=== PATIENT | female | born 1980 | race Hispanic/Latino ===

== ENCOUNTER 2018-01-11 15:32 | Emergency (ER) | payer OTHER ==
[~2018-01-11 15:32] MED LIST: ISOVUE-370 76%-LOCM 1 ML ONE
[2018-01-11 16:08] LABS: #Basophils 0.1 thou/uL (0.0-0.2); #Eosinphils 0.1 thou/uL (0.0-0.7); #Lymphocytes 1.9 thou/uL (1.20-3.40); #Monocytes 0.5 thou/uL (0.11-0.59); #Neutrophils 2.7 thou/uL (1.40-6.50); %Eosinophils 1.3 % (0.0-10.0); %Lymphocytes 36.2 % (21.0-51.0); %Monocytes 9.6 % (0.0-10.0); %Neutrophils 51.9 % (42.0-75.0); Hemoglobin 13.7 g/dL (12.0-16.0); Mean Corpuscular HGB CONC 33.8 g/dL (32.0-36.0); Mean Corpuscular Hemoglobin 30.4 pg (27.0-31.0); Mean Platelet Volume 8.5 fL (7.4-10.4); Platelet Count 172 thou/uL (130-400); White Blood Cell (WBC) Count 5.1 thou/uL (4.8-10.8)
[2018-01-11 16:10] LABS: Bilirubin Negative (Negative); Blood, Urine Negative (Negative); Clarity CLEAR (Clear); Glucose, Urine (Dipstick) Negative (Negative); Leukocyte Small (Negative); Nitrite Negative (Negative); Protein, Urine (Dipstick) Negative (Neg-Trace); Specific Gravity, Urine 1.006 (1.002-1.036); Urobilinogen 0.2 mg/dL (0.2-1.0); pH, Urine 7.5 (5.0-9.0)
[2018-01-11 16:12] LABS: Bacteria/HPF Rare-Few HPF (None Seen); Hyaline Casts/LPF 0-3 HYALINE CAST LPF (0-3 Hyaline); Pathc Cast-AUWi Flag 0.29 (0-2.49); Squamous Epithelial 0-3 HPF (0-3)
[2018-01-11 16:29] LABS: ALT (SGPT) 11 U/L (8-55); AST (SGOT) 16 U/L (5-34); Albumin 4.3 g/dL (3.5-5.0); Alkaline Phosphatase 102 U/L (40-150); Anion Gap 12 mmol/L (10-20); BUN (Urea Nitrogen) 7 mg/dL (7.0-18.7); Bilirubin, Total 0.3 mg/dL (0.2-1.2); Calc. Creatinine Clearance 0 mL/min (70-130); Carbon Dioxide 22 mmol/L (22-29); Chloride 109 mmol/L (98-107); Estimated GFR-MDRD Greater than 90; Globulin 2.7 g/dL (2.4-3.5); Glucose 91 mg/dL (70-105); Lipase 30 U/L (8-78); Potassium 3.8 mmol/L (3.5-5.1); Sodium 139 mmol/L (136-145)
[2018-01-11 17:29] LABS: Pregnancy Test - Urine (BHCG) Negative (Negative); Pregu Control Background? CLEAR/WHITE (CLR/WHITE); Pregu Control Bar Appear? YES (CONTROL BAR); Specific Gravity 1.006 (1.002-1.036)
--- NOTE | 2018-01-11 19:48 | CT ---
CT ABDOMEN AND PELVIS WITH CONTRAST: 01/11/18 Multiple axial tomograms obtained through the abdomen and pelvis with IV enhancement. INDICATIONS: Abdominal pain. Lung bases clear. The liver, spleen, and pancreas appear unremarkable. Adrenal glands normal. The kidneys are unremarkable. Small bowel loops appear normal caliber. There is prominent stool throughout the colon which could in dicate constipation. Aorta is normal caliber. No evidence of adenopathy. Images through the pelvis reveal mildly prominent uterus and endometrium. Both ovaries are mildly pro minent. Small amount of free fluid in the pelvis. No mass or cystic lesion seen. The appendix is identified and appears unremarkable. Loss of disc space and degenerative disc changes at L5-S1. Osseous structures otherwise unremarkable. IMPRESSION: Small amount of free fluid in the pelvis with mildly prominent endometrium. No acute process identifi ed. POS: CLAY
== END 2018-01-11 18:40 | disposition home or self-care (01) ==
LOC: ERS 15:32
DX: N30.00 Acute cystitis without hematuria (principal)
CPT/HCPCS: 36415; 74177; 80053; 81003; 81015; 81025; 83690; 85025

== ENCOUNTER 2018-07-19 07:59 | Outpatient (CLI) | payer OTHER ==
--- NOTE | 2018-07-19 10:05 | ULT ---
RIGHT UPPER QUADRANT ULTRASOUND: HISTORY: A 38-year-old female with epigastric pain, bloating, right upper quadrant pain. FINDINGS: The pancreas is not satisfactorily visualized due to overlying bowel gas. The liver, gallbladder, an d right kidney appear normal. The common duct measures 5 mm in diameter. No free fluid is seen in t he Morison's pouch. IMPRESSION: No evidence of cholelithiasis. POS: C
== END 2018-07-19 08:00 | disposition home or self-care (01) ==
LOC: BICULT 07:59
PROVIDERS: ATTEND Family Medicine
DX: R10.13 Epigastric pain (principal); R10.11 Right upper quadrant pain
CPT/HCPCS: 76705